=== PATIENT | male | born 1975 | race African-American/Black ===

== ENCOUNTER 2019-04-25 05:56 | Inpatient (IN) | payer MEDICAID ==
[~2019-04-25] VITALS: Ht 170.2 cm; Wt 81.0 kg
[2019-04-25] MEDS ORDERED: METO50 PO (06:08)
[2019-04-25] MEDS ORDERED: ASPI81 PO (06:08)
[2019-04-25] MEDS ORDERED: LISI-661 PO (06:08)
[2019-04-25] MEDS ORDERED: ATOR40TA28 PO (06:08)
[2019-04-25] MEDS ORDERED: HYDR25TA PO (06:08)
[2019-04-25] MEDS ORDERED: HALOPERIDOL 5 MG TABLET PO ONE (06:45)
[2019-04-25] MEDS ORDERED: DiphenhydrAMINE HCL 25 MG CAPSULE PO ONE (06:45)
[2019-04-25 06:51] LABS: BASOPHILS % (AUTO) 0.7 % (0.0-2.0); EOSINOPHILS % (AUTO) 0.3 % (1.0-6.0); HEMATOCRIT 43.3 % (41-53); HEMOGLOBIN 14.8 g/dL (13.5-17.5); LYMPHOCYTES # (AUTO) 1.1 K/uL (1.0-4.8); LYMPHOCYTES % (AUTO) 13.1 % (22.0-44.0); MEAN CORPUSCULAR HGB CONC 34.1 G/dL (31.0-37.0); MEAN CORPUSCULAR VOLUME 94 fL (80-100); MONOCYTES # (AUTO) 0.6 K/uL (0.1-1.0); MONOCYTES % (AUTO) 7.4 % (2.0-9.0); NEUTROPHILS # (AUTO) 6.6 K/uL (1.8-7.7); NEUTROPHILS % (AUTO) 78.5 % (40.0-70.0); PLATELET COUNT (AUTO) 349 K/uL (150-450); RED BLOOD CELL COUNT(AUTO) 4.61 MIL/uL (4.50-5.90); RED CELL DISTRIBUTION WIDTH 13.1 % (11.5-14.5)
[2019-04-25 06:52] LABS: AMPHET/METH SCREEN,URINE NEGATIVE (NEGATIVE); BARBITURATE SCREEN, URINE NEGATIVE (NEGATIVE); BENZODIAZEPINES SCREEN,URINE NEGATIVE (NEGATIVE); CANNABINOID SCREEN,URINE POSITIVE (NEGATIVE); COCAINE SCREEN,URINE NEGATIVE (NEGATIVE); METHADONE SCREEN, URINE NEGATIVE (NEGATIVE); OPIATE SCREEN,URINE NEGATIVE (NEGATIVE); PHENCYCLIDINE SCREEN,URINE NEGATIVE (NEGATIVE)
[2019-04-25 06:53] LABS: ANION GAP 18 mmol/L (8-16); CALCIUM, TOTAL 9.1 mg/dL (8.8-10.5); CARBON DIOXIDE 21 mmol/L (22-29); CHLORIDE 100 mmol/L (98-107); CREATININE 0.89 mg/dL (0.60-1.30); GLOMERULAR FILTR. RATE CALC > 60 mL/min (>60); GLUCOSE,RANDOM 104 mg/dL (70-110); POTASSIUM 3.9 mmol/L (3.5-5.1); SODIUM SERUM 139 mmol/L (136-145); UREA NITROGEN, BLOOD 18 mg/dL (7-18)
[2019-04-25 07:00] LABS: ALANINE AMINOTRANSFERASE 35 U/L (12-78); ALBUMIN 4.1 g/dL (3.4-5.0); ALKALINE PHOSPHATASE 78 U/L (46-116); ASPARTATE AMINOTRANSFERASE 26 U/L (15-37); BILIRUBIN,TOTAL 0.4 mg/dL (0.1-1.0)
[2019-04-25] MEDS ORDERED: OLANZapine 5 MG TABLET PO ONE (08:30)
[2019-04-25] MEDS ORDERED: LORazepam 2 MG TABLET PO ONE (08:30)
[2019-04-25] MEDS ORDERED: LOPERAMIDE HCL 2 MG CAPSULE PO PRN (11:15)
[2019-04-25] MEDS ORDERED: MAGNESIUM HYDROXIDE SUSPENSION 30 ML UDCUP PO PRN (11:15)
[2019-04-25] MEDS ORDERED: ACETAMINOPHEN 325 MG TABLET PO PRN (11:15)
[2019-04-25] MEDS ORDERED: GuaiFENesin/D-METHORPHAN [SUGAR-FREE] 200-20MG/10 ML SYRUP UDCUP PO PRN (11:15)
[2019-04-25] MEDS ORDERED: ZOLPIDEM TARTRATE 10 MG TABLET PO PRN (11:15)
[2019-04-25] MEDS ORDERED: PROMETHAZINE HCL 25 MG TABLET PO PRN (11:15)
[2019-04-25] MEDS ORDERED: CYANOCOBALAMIN 1,000 MCG/ML VIAL IM ONE (11:15)
[2019-04-25] MEDS ORDERED: TUBERCULIN, PURIFIED PROTEIN DERIVATIVE 5 TU/0.1 ML SYRINGE ID ONE (11:15)
[2019-04-25] MEDS ORDERED: MAG HYDROX/AL HYDROX/SIMETH ES 30 ML SUSPENSION UDCUP PO PRN (11:15)
[2019-04-25 13:00] VITALS: BP 177/107
[2019-04-25] MEDS: HydrOXYzine PAMOATE 50 MG CAPSULE PO PRN ×2 (13:14→17:51)
[2019-04-25] MEDS: OLANZapine 5 MG RAPDIS TABLET PO PRN ×2 (13:14→17:55)
[2019-04-25] MEDS: AmLODIPine BESYLATE 5 MG TABLET PO SCH ×2 (13:57→14:49)
[2019-04-25 14:20] VITALS: BP 128/76
[2019-04-25] MEDS: THIAMINE HCL 100 MG TABLET PO SCH (17:24)
[2019-04-25 17:44] VITALS: BP 161/100
[2019-04-25] MEDS: CloNIDine HCL 0.1 MG TABLET PO PRN (17:51)
[2019-04-25 18:50] VITALS: BP_SYST 116; BP_SYST 138; BP_DIAS 71; BP_DIAS 78
[2019-04-25] MEDS: ATORVASTATIN CALCIUM 40 MG TABLET PO SCH (20:50)
[2019-04-25] MEDS ORDERED: OLANZapine 5 MG RAPDIS TABLET PO SCH (21:00)
[2019-04-26] MEDS ORDERED: INFLUENZA VIRUS VACCINE QVS 2019-20 (3YR+)/PF 60 MCG/0.5 ML SYRINGE IM ONE (01:30)
[2019-04-26] MEDS ORDERED: PNEUMOCOCCAL VACCINE POLYVALENT 0.5 ML VIAL [PPSV23] IM ONE (01:30)
[2019-04-26 06:25] VITALS: BP 145/100
[2019-04-26 07:53] LABS: HEMOGLOBIN A1C 5.7 % (4.5-6.2)
[2019-04-26 08:13] LABS: ALANINE AMINOTRANSFERASE 28 U/L (12-78); ALBUMIN 3.6 g/dL (3.4-5.0); ALKALINE PHOSPHATASE 71 U/L (46-116); ANION GAP 8 mmol/L (8-16); ASPARTATE AMINOTRANSFERASE 24 U/L (15-37); BILIRUBIN,TOTAL 0.4 mg/dL (0.1-1.0); CALCIUM, TOTAL 8.6 mg/dL (8.8-10.5); CARBON DIOXIDE 28 mmol/L (22-29); CHLORIDE 106 mmol/L (98-107); CHOL/HDL RATIO 4.5 (4.2-7.3); CHOLESTEROL 130 mg/dL (131-200); CREATININE 0.95 mg/dL (0.60-1.30); GLOMERULAR FILTR. RATE CALC > 60 mL/min (>60); GLUCOSE,RANDOM 104 mg/dL (70-110); HDL CHOLESTEROL 29 mg/dL (40-60); LDL CHOL (CALC.) 80 mg/dL (0-130); POTASSIUM 3.8 mmol/L (3.5-5.1); SODIUM SERUM 142 mmol/L (136-145); THYROID STIMULATING HORMONE 1.51 uIU/mL (0.36-3.74); TOTAL PROTEIN, SERUM 7.9 g/dL (6.4-8.2); TRIGLYCERIDES 106 mg/dL (15-150); UREA NITROGEN, BLOOD 14 mg/dL (7-18)
[2019-04-26 08:14] VITALS: BP 140/86
[2019-04-26] MEDS: THIAMINE HCL 100 MG TABLET PO SCH ×2 (08:30→16:36)
[2019-04-26] MEDS: ASPIRIN 81 MG CHEWABLE TABLET PO SCH (08:30)
[2019-04-26] MEDS: LISINOPRIL 10 MG TABLET PO SCH (08:30)
[2019-04-26] MEDS: AmLODIPine BESYLATE 5 MG TABLET PO SCH (08:31)
[2019-04-26] MEDS: FOLIC ACID 1 MG TABLET PO SCH (08:31)
[2019-04-26] MEDS: MULTIVITAMINS WITH MINERALS, THERAPEUTIC TABLET PO SCH (08:31)
[2019-04-26] MEDS: NICOTINE 21 MG/24 HOUR PATCH TD SCH (09:07)
[2019-04-26 16:08] VITALS: BP 142/84
[2019-04-26] MEDS: ATORVASTATIN CALCIUM 40 MG TABLET PO SCH (20:49)
[2019-04-27 04:40] VITALS: BP 138/60
[2019-04-27 08:04] VITALS: BP 131/89
[2019-04-27] MEDS: THIAMINE HCL 100 MG TABLET PO SCH ×2 (08:21→16:18)
[2019-04-27] MEDS: FOLIC ACID 1 MG TABLET PO SCH (08:21)
[2019-04-27] MEDS: AmLODIPine BESYLATE 5 MG TABLET PO SCH (08:21)
[2019-04-27] MEDS: MULTIVITAMINS WITH MINERALS, THERAPEUTIC TABLET PO SCH (08:21)
[2019-04-27] MEDS: ASPIRIN 81 MG CHEWABLE TABLET PO SCH (08:21)
[2019-04-27] MEDS: LISINOPRIL 10 MG TABLET PO SCH (08:21)
[2019-04-27] MEDS: NICOTINE 21 MG/24 HOUR PATCH TD SCH (09:00)
[2019-04-27] MEDS ORDERED: ARIPiprazole 15 MG TABLET PO SCH (09:00)
[2019-04-27 16:03] VITALS: BP 135/86
[2019-04-27] MEDS: OLANZapine 5 MG RAPDIS TABLET PO PRN (16:20)
[2019-04-27] MEDS ORDERED: ARIP15TA2 PO (16:22)
[2019-04-27] MEDS: ATORVASTATIN CALCIUM 40 MG TABLET PO SCH (20:22)
[2019-04-27] MEDS: HydrOXYzine PAMOATE 50 MG CAPSULE PO PRN (20:22)
[2019-04-28 00:02] VITALS: BP 147/106
[2019-04-28] MEDS: FOLIC ACID 1 MG TABLET PO SCH (08:19)
[2019-04-28] MEDS: THIAMINE HCL 100 MG TABLET PO SCH ×2 (08:19→16:33)
[2019-04-28] MEDS: ASPIRIN 81 MG CHEWABLE TABLET PO SCH (08:19)
[2019-04-28] MEDS: MULTIVITAMINS WITH MINERALS, THERAPEUTIC TABLET PO SCH (08:19)
[2019-04-28] MEDS: LISINOPRIL 10 MG TABLET PO SCH (08:19)
[2019-04-28] MEDS: AmLODIPine BESYLATE 5 MG TABLET PO SCH (08:19)
[2019-04-28] MEDS: NICOTINE 21 MG/24 HOUR PATCH TD SCH ×2 (08:21→08:39)
[2019-04-28 08:26] VITALS: BP 148/97
[2019-04-28] MEDS ORDERED: ARIPiprazole 10 MG TABLET PO SCH (09:00)
[2019-04-28 16:19] VITALS: BP 145/103
[2019-04-28] MEDS: CloNIDine HCL 0.1 MG TABLET PO PRN (16:33)
[2019-04-28 17:25] VITALS: BP 133/92
[2019-04-28] MEDS ORDERED: AMLO5TAB9 PO (17:31)
[2019-04-28] MEDS ORDERED: MULT-1239 PO (17:31)
[2019-04-28] MEDS ORDERED: THIA100T67 PO (17:31)
[2019-04-28] MEDS ORDERED: FOLI1 PO (17:31)
== END 2019-04-28 18:00 | disposition home or self-care (01) | DRG 750 ==
LOC: EMS 05:56 → B3A 11:07
PROVIDERS: ADMIT Psychiatry & Neurology Psychiatry; ATTEND Psychiatry & Neurology Psychiatry
DX: F25.9 Schizoaffective disorder, unspecified (principal); Z91.19 Patient's noncompliance with other medical treatment and regimen; E78.00 Pure hypercholesterolemia, unspecified; E78.5 Hyperlipidemia, unspecified; F12.90 Cannabis use, unspecified, uncomplicated; F15.10 Other stimulant abuse, uncomplicated; I10 Essential (primary) hypertension; Z83.3 Family history of diabetes mellitus; Z87.891 Personal history of nicotine dependence
CPT/HCPCS: 83036; 84439; 84443; 86592; G0480; J3420

== ENCOUNTER 2021-06-18 09:31 | Emergency (ER) | payer MEDICAID, OTHER ==
[~2021-06-18] VITALS: Ht 177.8 cm; Wt 102.0 kg
[~2021-06-18 09:31] MED LIST: AMLO-257 PO; ARIP15TA27 PO; ASPI-1450 PO; ATOR40TA28 PO; FOLI-130 PO; LISI-893 PO; MULT-1239 PO; THIAMINE HCL100 MG PO
[2021-06-18] MEDS ORDERED: KETOROLAC TROMETHAMINE 30 MG/ML VIAL IM ONE (12:00)
[2021-06-18 12:28] VITALS: BP 122/81
[2021-06-18] MEDS ORDERED: LIDOCAINE 5% TRANSDERMAL PATCH TD ONE (13:15)
[2021-06-18] MEDS ORDERED: IBUP-2070 PO (13:24)
== END 2021-06-18 13:57 | disposition home or self-care (01) ==
LOC: EMS 09:35
DX: M79.605 Pain in left leg (principal); I10 Essential (primary) hypertension; E78.00 Pure hypercholesterolemia, unspecified; F20.9 Schizophrenia, unspecified; F15.90 Other stimulant use, unspecified, uncomplicated; F17.210 Nicotine dependence, cigarettes, uncomplicated; Z79.899 Other long term (current) drug therapy; Z79.82 Long term (current) use of aspirin
CPT/HCPCS: 93971; 96372; 99284; J1885

== ENCOUNTER 2021-07-13 08:28 | Emergency (ER) | payer OTHER ==
[~2021-07-13] VITALS: Ht 177.8 cm; Wt 102.3 kg
[~2021-07-13 08:28] MED LIST changes: +IBUP-2070 PO
[2021-07-13] MEDS ORDERED: KETOROLAC TROMETHAMINE 60 MG/2 ML VIAL IM ONE (09:45)
[2021-07-13 10:29] VITALS: BP 138/82
[2021-07-13] MEDS ORDERED: ASPI-989 PO (11:39)
[2021-07-13] MEDS ORDERED: IBUP-1554 PO (11:39)
== END 2021-07-13 11:56 | disposition home or self-care (01) ==
LOC: EMS 08:30
DX: M25.551 Pain in right hip (principal); M25.552 Pain in left hip; I10 Essential (primary) hypertension; E78.00 Pure hypercholesterolemia, unspecified; F17.210 Nicotine dependence, cigarettes, uncomplicated; Z79.899 Other long term (current) drug therapy; Z79.82 Long term (current) use of aspirin
CPT/HCPCS: 73521; 96372; 99283; J1885